=== PATIENT | female | born 1950 | race Caucasian/White ===

== ENCOUNTER 2017-09-14 23:18 | Emergency (ER) | payer OTHER ==
[~2017-09-14] VITALS: Ht 165.1 cm; Wt 90.7 kg
[2017-09-14] MEDS ORDERED: CALCIUM CHL(10%) 100MG/ML 10ML VIAL IV ONE (23:19)
[2017-09-14] MEDS ORDERED: EPINEPHrine HCL 1 MG/10 ML SYRG IV ONE (23:19)
[2017-09-14] MEDS ORDERED: SODIUM BICARBONATE 8.4% INJ 50ML SYRINGE IV ONE (23:19)
[2017-09-14 23:23] VITALS: BP 0/0
[2017-09-14] MEDS ORDERED: SODIUM BICARBONATE 8.4% INJ 50ML SYRINGE ONE (23:27)
== END 2017-09-15 02:20 | disposition expired ==
LOC: ER 23:18 → EDBD 23:18 → ER 09-15 02:20
DX: I46.9 Cardiac arrest, cause unspecified (principal); I10 Essential (primary) hypertension; E11.9 Type 2 diabetes mellitus without complications; F17.200 Nicotine dependence, unspecified, uncomplicated
CPT/HCPCS: 92950; 99285; J0171